=== PATIENT | male | born 1995 | race Caucasian/White ===

== ENCOUNTER 2018-09-08 22:39 | Emergency (ER) | payer BC ==
--- NOTE | 2018-09-08 23:08 | EDM.PDOC ---
ED HPI GENERAL MEDICAL PROBLEM - General Chief Complaint: Upper Extremity Injury/Pain Stated Complaint: RASH/SHOULDER PAIN Time Seen by Provider: 09/08/18 23:08 Source of Information: Reports: Patient History Limitations: Reports: No Limitations - History of Present Illness INITIAL COMMENTS - FREE TEXT/NARRATIVE: HISTORY AND PHYSICAL: History of present illness: Patient is a 23-year-old male presents to the ED with multiple concerns. He states that over the past few months he has been having different rashes on and off. He states he had a rash on his feet and hands which have since resolved. He had large bumps on his right shoulder 2 days ago which he states resolved. Since then he has been having a sharp pain in his shoulder and it clicks when he moves it. He states he did fall out of bed last week and doesn't know if he might have landed on his shoulder. He also notes that he has been really shaky lately and has been nauseous. He denies fevers, chills, vomiting, abdominal pain , diarrhea, cough, chest pain, shortness of breath. He is currently on zoloft for depression. He moved to [place] 1 month ago. Review of systems: As per history of present illness and below otherwise all systems reviewed and negative. Past medical history: As per history of present illness and as reviewed below otherwise noncontributory. Surgical history: As per history of present illness and as reviewed below otherwise noncontributory. Social history: No reported history of drug or alcohol abuse. Family history: As per history of present illness and as reviewed below otherwise noncontributory. Physical exam: General: Patient sitting comfortably in no acute distress and nontoxic appearing HEENT: Atraumatic, normocephalic, pupils reactive, negative for conjunctival pallor or scleral icterus, mucous membranes moist, throat clear, neck supple, nontender, trachea midline. No meningeal signs. Lungs: Clear to auscultation, breath sounds equal bilaterally, chest nontender. Heart: S1S2, regular, negative for clicks, rubs, or overt murmur. Abdomen: Soft, nondistended, nontender. Negative for masses or hepatosplenomegaly. Negative for costovertebral tenderness. No rigidity, rebound , guarding. Pelvis: Stable nontender. Genitourinary: Deferred. Rectal: Deferred. Extremities: Pain to palpation of the right glenohumeral joint. Atraumatic, negative for cords or calf pain. Neurovascular unremarkable. Neuro: Awake, alert, oriented. Cranial nerves II through XII unremarkable. Cerebellum unremarkable. Motor and sensory unremarkable throughout. Exam nonfocal. Notes: Diagnostics: CBC, CMP, right shoulder x-ray Therapeutics: None Prescriptions: Impression: Shoulder pain, rash Plan: 1. Alternate tylenol and motrin as needed for shoulder pain. Benadryl as needed for rash. 2. Follow up with primary care provider 3. Return to ED as needed as discussed Definitive disposition and diagnosis as appropriate pending reevaluation and review of above. Right Shoulder Pain Score (Numeric/FACES): 3 - Related Data Allergies Allergy/AdvReac Type Severity Reaction Status Date / Time No Known Allergies Allergy Verified 09/08/18 23:00 Home Meds: Home Meds Sertraline [Zoloft] 50 mg PO DAILY 09/08/18 [History] Review of Systems - Review of Systems Review Of Systems: ROS reveals no pertinent complaints other than HPI. ED EXAM, GENERAL - Physical Exam Exam: See Below (see dictation) Course - Vital Signs Last Recorded V/S: Last Vital Signs Temp 97.7 F 09/08/18 23:04 Pulse 107 H 09/08/18 23:04 Resp 18 09/08/18 23:04 BP 148/91 H 09/08/18 23:04 Pulse Ox 97 09/08/18 23:04 - Orders/Labs/Meds Orders: Active Orders 24 hr Category Date Time Status COMPREHENSIVE METABOLIC PN,CMP [CHEM] Stat Lab 09/08/18 23:46 Received Labs: Laboratory Tests 09/08/18 Range/Units 23:46 WBC 11.24 H (4.0-11.0) K/uL RBC 5.28 (4.50-5.90) M/uL Hgb 15.2 (13.0-17.0) g/dL Hct 44.6 (38.0-50.0) % MCV 84.5 (80.0-98.0) fL MCH 28.8 (27.0-32.0) pg MCHC 34.1 (31.0-37.0) g/dL RDW Std Deviation 39.2 (28.0-62.0) fl RDW Coeff of Mary Beth 13 (11.0-15.0) % Plt Count 311 (150-400) K/uL MPV 10.50 (7.40-12.00) fL Neut % (Auto) 57.7 (48.0-80.0) % Lymph % (Auto) 32.5 (16.0-40.0) % [place] % (Auto) 6.9 (0.0-15.0) % Eos % (Auto) 2.7 (0.0-7.0) % Baso % (Auto) 0.2 (0.0-1.5) % Neut # (Auto) 6.5 H (1.4-5.7) K/uL Lymph # (Auto) 3.7 H (0.6-2.4) K/uL [place] # (Auto) 0.8 (0.0-0.8) K/uL Eos # (Auto) 0.3 (0.0-0.7) K/uL Baso # (Auto) 0.0 (0.0-0.1) K/uL Nucleated RBC % 0.0 /100WBC Nucleated RBCs # 0 K/uL Departure - Departure Time of Disposition: 00:26 Disposition: Home, Self-Care 01 Condition: Good Clinical Impression: Shoulder pain, Rash - Discharge Information Referrals: PCP,None [Primary Care Provider] - Forms: ED Department Discharge Additional Instructions: The following information is given to patients seen in the emergency department who are being discharged to home. This information is to outline your options for follow-up care. We provide all patients seen in our emergency department with a follow-up referral. The need for follow-up, as well as the timing and circumstances, are variable depending upon the specifics of your emergency department visit. If you don't have a primary care physician on staff, we will provide you with a referral. We always advise you to contact your personal physician following an emergency department visit to inform them of the circumstance of the visit and for follow-up with them and/or the need for any referrals to a consulting specialist. The emergency department will also refer you to a specialist when appropriate. This referral assures that you have the opportunity for follow-up care with a specialist. All of these measure are taken in an effort to provide you with optimal care, which includes your follow-up. Under all circumstances we always encourage you to contact your private physician who remains a resource for coordinating your care. When calling for follow-up care, please make the office aware that this follow-up is from your recent emergency room visit. If for any reason you are refused follow-up, please contact the [facility] Emergency Department at and asked to speak to the emergency department charge nurse. [facility] [address], [place] [address] [facility] [address] [place] [id number] 1. Alternate tylenol and motrin as needed for shoulder pain. Benadryl as needed for rash. 2. Follow up with primary care provider 3. Return to ED as needed as discussed - My Orders Last 24 Hours: My Active Orders 09/08/18 23:46 COMPREHENSIVE METABOLIC PN,CMP [CHEM] Stat - Assessment/Plan Last 24 Hours: My Active Orders 09/08/18 23:46 COMPREHENSIVE METABOLIC PN,CMP [CHEM] Stat
--- NOTE | 2018-09-08 23:48 | CR ---
INDICATION: Shoulder pain, no known injury TECHNIQUE: Shoulder radiograph 3 views right COMPARISON: None FINDINGS: Bone: No acute fractures or aggressive bone lesions are identified. Joint: The glenohumeral is unremarkable. The acromioclavicular joint is unremarkable. Soft tissue: Unremarkable. The visualized hemithorax is unremarkable in appearance. No radiopaque foreign bodies are seen. IMPRESSION: 1. No acute osseous injuries or abnormalities are noted. Dictated by: Bradley Garcia MD @ 09/08/2018 23:46:39 (Electronically Signed)
[2018-09-09 00:15] LABS: CHLORIDE,CL 105 mmol/L (98-107); SODIUM,NA 141 mmol/L (136-148)
== END 2018-09-09 00:40 | disposition home or self-care (01) ==
LOC: EDBD 22:39 → MW.ED 22:39
DX: M25.511 Pain in right shoulder (principal); R21 Rash and other nonspecific skin eruption; Z79.899 Other long term (current) drug therapy
CPT/HCPCS: 36415; 73030-26-RT; 73030-RT; 80053; 85025; 99283; 99283-25